=== PATIENT | female | born 2000 | race Two or more races ===

== ENCOUNTER 2024-07-24 16:20 | Emergency (ER) | payer MEDICAID, SELFPAY ==
[2024-07-24 16:22] VITALS: BMI 20.7
[2024-07-24 16:27] VITALS: BP 114/72; PULSE 98; RESP 16; TEMP 37.2; O2SAT 100
--- NOTE | 2024-07-24 16:39 | XR_ITS ---
Examination: Thoracic spine 2 views TECHNIQUE: AP lateral thoracic spine 2 views Exam date and time: July 24, 2024 at 1654 hours INDICATIONS: Injury to the back yesterday back pain FINDINGS: No acute fracture is Upper thoracic dextroscoliosis 14 degrees, thoracolumbar levoscoliosis 12 degrees Old left-sided rib fractures IMPRESSION: No acute thoracic fracture
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
== END 2024-07-24 22:08 | disposition left against medical advice (07) ==
PROVIDERS: Emergency Provider Emergency Medicine
DX: R51.9 Headache, unspecified (principal); M54.2 Cervicalgia; M54.9 Dorsalgia, unspecified; T14.8XXA Other injury of unspecified body region, initial encounter; Y04.0XXA Assault by unarmed brawl or fight, initial encounter; Z53.29 Procedure and treatment not carried out because of patient's decision for other reasons
CPT/HCPCS: 72070; 99281

== ENCOUNTER 2024-07-25 13:27 | Emergency (ER) | payer MEDICAID, SELFPAY ==
[2024-07-25 13:29] VITALS: BMI 20.7
[2024-07-25 14:31] VITALS: BP 105/67; PULSE 95; RESP 12; O2SAT 100
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
--- NOTE | 2024-07-25 14:46 | XR_ITS ---
Examination: Lumbar spine 3 views Technique one AP lateral coned lateral lower lumbar spine 3 views Exam date and time: July 25, 2024 1546 hrs. Indications: Injury to lower back yesterday, lower back pain. Findings: Lumbar levoscoliosis 10 degrees No acute lumbar fracture No spondylolisthesis Minimal disc narrowing L5-S1 Impression: No lumbar fracture
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
[2024-07-25 15:42] LABS: HCG Qualitative,Urine Negative
[2024-07-25 21:15] VITALS: BP 106/67; PULSE 82; RESP 18; TEMP 36.9; O2SAT 99
--- NOTE | 2024-07-25 21:21 | PC.NURSE ---
C-Collar applied at this time.
[2024-07-26 00:41] VITALS: BP 102/61; PULSE 78; RESP 17; TEMP 37.1; O2SAT 98
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
--- NOTE | 2024-07-26 01:00 | PC.NURSE ---
I SPOKE WITH MARC FROM [facility] AND PER DR. BENNY COLEMAN HE RECOMMENDS THIS PT GO TO A HIGHER LEVEL CARE FACILITY BECAUSE THEY ARE LIMITED IN THEIR SPINAL SERVICES.
--- NOTE | 2024-07-26 01:37 | PC.NURSE ---
DR. BAL IS ON THE PHONE WITH THE [facility] @ THIS TIME.
[2024-07-26 01:42] VITALS: BP 105/54; PULSE 81; RESP 16; TEMP 36.9; O2SAT 98
[2024-07-26 02:25] LABS: Basophils # (Auto) 0.1 Thou/mm3 (0.0-0.2); Basophils % (Auto) 1 % (0-2.5); Eosinophils # (Auto) 0.2 Thou/mm3 (0.0-0.5); Eosinophils % (Auto) 2 % (0-10); Hematocrit 32.8 % (36.0-46.0); Hemoglobin 10.8 g/dL (12.0-16.0); Immature Granulocytes % (Auto) 0 % (0-0); Immature Granulocytes Auto 0.02 Thou/mm3 (0.00-0.00); Lymphocytes # (Auto) 3.6 Thou/mm3 (1.0-4.8); Lymphocytes % (Auto) 41 % (10-50); Mean Corpuscular HGB Conc 32.9 g/dl (31.0-37.0); Mean Corpuscular Volume 82 fL (80-100); Monocytes # (Auto) 0.5 Thou/mm3 (0.0-0.8); Monocytes % (Auto) 6 % (0-12); Neutrophils # (Auto) 4.4 Thou/mm3 (1.8-7.7); Neutrophils % (Auto) 50 % (37-80); Nucleated Red Blood Cell % 0 /100 WBC (0); Platelet Count 321 Thou/mm3 (140-440); White Blood Count 8.7 Thou/mm3 (3.6-11.0)
[2024-07-26] MEDS: KETOROLAC INJ 30 MG/ML VIAL IVP (02:33)
[2024-07-26] MEDS: SODIUM CHLORIDE 0.9% 1000 ML 1,000 ML 999 ML IV (02:33)
[2024-07-26] MEDS: DIPHTH,PERTUSS(ACELL),TET VAC 0.5 ML SYR- ADULT IMi (02:33)
--- NOTE | 2024-07-26 02:38 | PC.NURSE ---
Pt sitting up in bed with C-collar drinking juice and using her cell phone
[2024-07-26 03:03] LABS: Partial Thromboplastin Time 29.3 Seconds (22.0-36.0); Prothrombin Time 10.8 Seconds (9.0-12.2)
--- NOTE | 2024-07-26 03:05 | PC.NURSE ---
THIS PT IS ACCEPTED TO [facility] IN [place] BY DR. HUGHES FROM [facility]. [facility] SIS A ER:ER TRANSFER AND NUMBER FOR REPORT IS [phone]. MILA WAS THE REP I SPOKE WITH FOR ACCEPTING INFORMATION.
[2024-07-26 03:06] LABS: Albumin, Serum 3.7 gm/dL (3.5-5.0); Alcohol, Blood Medical < 3.0 mg/dL (0-10.0); Alkaline Phosphatase 69 U/L (46-116); Anion Gap 7 (7-16); Aspartate Amino Transferase 13 U/L (0-34); BUN/Creatinine Ratio 20 Ratio (12-20); Blood Urea Nitrogen 14 mg/dL (9-23); Calcium 8.7 mg/dL (8.3-10.6); Calcium (Corrected) 8.9 mg/dL (8.5-10.1); Carbon Dioxide 28.3 mMol/L (20.0-31.0); Chloride 105 mMol/L (98-107); Creatinine (Component) 0.7 mg/dL (0.6-1.3); Estimated Creatinine Clearance 95.9 mL/min (>60); Glucose 103 mg/dL (74-106); Magnesium 2.2 mg/dL (1.6-2.6); Osmolality,Calculated 279 (275-295); Potassium 3.8 mMol/L (3.4-5.1); Sodium 140 mMol/L (136-145); eGFR > 60 See Note
[2024-07-26 03:17] LABS: Alanine Aminotransferase 8 U/L (10-49); Albumin/Globulin Ratio 1.5 (1.2-2.2); Bilirubin,Total 0.8 mg/dL (0.3-1.2); Globulin 2.4 gm/dL (2.3-3.5); Total Protein 6.1 gm/dL (5.7-8.2)
[2024-07-26] MEDS: MethylPREDNISolone SOD SUCC 62.5 MG/ML 2ML VIAL 125 MG IVP (03:31)
--- NOTE | 2024-07-26 03:33 | PC.NURSE ---
[place] case #[id number]
[2024-07-26] MEDS: ALBUTEROL/IPRATROPIUM (Duoneb) RT SOL 3 ML NEBU INH (03:39)
[2024-07-26 03:44] VITALS: PULSE 75; RESP 16; O2SAT 98
--- NOTE | 2024-07-26 03:54 | PC.NURSE ---
Report to [facility]
[2024-07-26 04:17] VITALS: BP 98/42; PULSE 87; RESP 18; O2SAT 98
== END 2024-07-26 04:20 | disposition short-term general hospital (02) ==
PROVIDERS: Physician Assistant; Emergency Provider Emergency Medicine; PCP Family Medicine
DX: S12.501A Unspecified nondisplaced fracture of sixth cervical vertebra, initial encounter for closed fracture (principal); S06.0X9A Concussion with loss of consciousness of unspecified duration, initial encounter; S05.12XA Contusion of eyeball and orbital tissues, left eye, initial encounter; S05.11XA Contusion of eyeball and orbital tissues, right eye, initial encounter; S80.212A Abrasion, left knee, initial encounter; S80.211A Abrasion, right knee, initial encounter; S30.810A Abrasion of lower back and pelvis, initial encounter; S40.212A Abrasion of left shoulder, initial encounter; S40.211A Abrasion of right shoulder, initial encounter; S40.812A Abrasion of left upper arm, initial encounter; S40.811A Abrasion of right upper arm, initial encounter; S70.312A Abrasion, left thigh, initial encounter; S70.311A Abrasion, right thigh, initial encounter; S80.812A Abrasion, left lower leg, initial encounter; S80.811A Abrasion, right lower leg, initial encounter; S60.511A Abrasion of right hand, initial encounter; S30.0XXA Contusion of lower back and pelvis, initial encounter; S40.012A Contusion of left shoulder, initial encounter; S40.011A Contusion of right shoulder, initial encounter; S70.12XA Contusion of left thigh, initial encounter; S70.11XA Contusion of right thigh, initial encounter; S80.12XA Contusion of left lower leg, initial encounter; S80.11XA Contusion of right lower leg, initial encounter; S40.022A Contusion of left upper arm, initial encounter; S40.021A Contusion of right upper arm, initial encounter; Y04.0XXA Assault by unarmed brawl or fight, initial encounter; Z75.1 Person awaiting admission to adequate facility elsewhere; Z23 Encounter for immunization
CPT/HCPCS: 36415; 70450; 72100; 72125; 73130; 80053; 80320; 81025; 83735; 85025; 85610; 85730; 90471; 90715; 94640; 96361; 96374; 99285; A9270; J1885; J2919; J7030; G0480

== ENCOUNTER 2024-08-08 19:03 | Emergency (ER) | payer MEDICAID, SELFPAY ==
[2024-08-08 19:03] VITALS: BMI 25.4
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
[2024-08-08] MEDS: ACETAMINOPHEN 325 MG TABLET 650 MG PO (19:33)
[2024-08-08 19:34] VITALS: BP 117/78; PULSE 100; RESP 16; TEMP 37.1; O2SAT 100
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
== END 2024-08-09 01:29 | disposition home or self-care (01) ==
PROVIDERS: Emergency Provider Emergency Medicine; PCP Family Medicine
DX: S12.500A Unspecified displaced fracture of sixth cervical vertebra, initial encounter for closed fracture (principal); S09.90XA Unspecified injury of head, initial encounter; S29.9XXA Unspecified injury of thorax, initial encounter; W10.9XXA Fall (on) (from) unspecified stairs and steps, initial encounter
CPT/HCPCS: 70450; 72125; 72128; 99284; A9270

== ENCOUNTER 2024-09-18 04:53 | Emergency (ER) | payer MEDICAID, SELFPAY ==
[2024-09-18 04:57] VITALS: PULSE 103; RESP 18; O2SAT 99
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
[2024-09-18 05:03] VITALS: BP 138/97; PULSE 100; RESP 19; TEMP 36.4; O2SAT 99; BMI 19.3
[2024-09-18 05:05] VITALS: BP 138/97; PULSE 91; RESP 14; TEMP 36.4; O2SAT 99
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
--- NOTE | 2024-09-18 05:10 | EKG_ITS ---
[facility] Test Date: 2024-09-18 Pat Name: KELLY GARCIA Department: Room: - Gender: Female Transverse Abdominal Muscle Nurse: : 2000 Requested By: Pratik Sharpe Order Number: [id number] Reading MD: Pratik Sharpe Measurements Intervals [place] Rate: 148 P: 89 NM: 131 QRS: 51 QRSD: 93 T: 11 QT: 286 QTc: 450 Interpretive Statements SINUS TACHYCARDIA, POSSIBLE ATRIAL FLUTTER MODERATE ST DEPRESSION [0.05+ mV ST DEPRESSION] No previous ECG available for comparison /store/S0/[id number]/ecg/[id number].pdf
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
[2024-09-18 05:19] LABS: Base Excess, Venous -3 (-3-3); O2 Saturation, Venous 81 % (96-97); PCO2, Venous 42 mmHg (36-56); PO2, Venous 49 mmHg (15-58); pH, Venous 7.34 (7.33-7.66)
[2024-09-18 05:25] LABS: Basophils % (Auto) 0 % (0-2.5); Eosinophils % (Auto) 0 % (0-10); Hemoglobin 12.3 g/dL (12.0-16.0); Immature Granulocytes % (Auto) 0 % (0-0); Immature Granulocytes Auto 0.02 Thou/mm3 (0.00-0.00); Lymphocytes # (Auto) 2.5 Thou/mm3 (1.0-4.8); Lymphocytes % (Auto) 31 % (10-50); Mean Corpuscular HGB Conc 34.2 g/dl (31.0-37.0); Mean Corpuscular Hemoglobin 27.2 pg (25.0-35.0); Mean Corpuscular Volume 80 fL (80-100); Monocytes # (Auto) 0.3 Thou/mm3 (0.0-0.8); Monocytes % (Auto) 4 % (0-12); Neutrophils # (Auto) 5.3 Thou/mm3 (1.8-7.7); Neutrophils % (Auto) 65 % (37-80); Nucleated Red Blood Cell % 0 /100 WBC (0); Platelet Count 308 Thou/mm3 (140-440); RDW Standard Deviation 39.8 fL (36.4-46.3); Red Blood Count 4.53 Miln/mm3 (4.00-5.20); White Blood Count 8.2 Thou/mm3 (3.6-11.0)
[2024-09-18] MEDS: LORazepam 2 MG/ML VIAL 1 MG IVP (05:25)
[2024-09-18] MEDS: SODIUM CHLORIDE 0.9% 1000 ML 1,000 ML 999 ML IV (05:31)
[2024-09-18] MEDS: ONDANSETRON INJ 2 MG/ML INJ 2 ML 4 MG IVP (05:31)
[2024-09-18 05:35] LABS: Partial Thromboplastin Time 26.8 Seconds (22.0-36.0); Prothrombin Time 11.3 Seconds (9.0-12.2)
[2024-09-18 05:55] LABS: Ammonia 14 uMol/L (11-32)
[2024-09-18 06:07] LABS: HCG,Qualitative Serum Negative
[2024-09-18 06:14] LABS: B-Type Natriuretic Peptide < 20 pg/mL (0-100)
[2024-09-18 06:17] LABS: Acetaminophen < 2.0 mcg/mL (10.0-20.0); Alanine Aminotransferase 11 U/L (10-49); Albumin, Serum 4.5 gm/dL (3.5-5.0); Albumin/Globulin Ratio 1.8 (1.2-2.2); Alcohol, Blood Medical 272.2 mg/dL (0-10.0); Alkaline Phosphatase 59 U/L (46-116); Anion Gap 12 (7-16); Aspartate Amino Transferase 20 U/L (0-34); BUN/Creatinine Ratio 7 Ratio (12-20); Bilirubin,Direct 0.2 mg/dL (0.0-0.3); Bilirubin,Total 0.7 mg/dL (0.3-1.2); Blood Urea Nitrogen < 5 mg/dL (9-23); Calcium 8.6 mg/dL (8.3-10.6); Calcium (Corrected) 8.6 mg/dL (8.5-10.1); Carbon Dioxide 22.8 mMol/L (20.0-31.0); Chloride 112 mMol/L (98-107); Creatine Kinase 142 U/L (34-171); Creatinine (Component) 0.7 mg/dL (0.6-1.3); Estimated Creatinine Clearance 108.8 mL/min (>60); Globulin 2.5 gm/dL (2.3-3.5); Glucose 130 mg/dL (74-106); Osmolality,Calculated 291 (275-295); Potassium 3.6 mMol/L (3.4-5.1); Sodium 147 mMol/L (136-145); Troponin I < 0.002 ng/mL (0.0-0.045); eGFR > 60 See Note
[2024-09-18 06:34] VITALS: PULSE 120; RESP 20; O2SAT 100
--- NOTE | 2024-09-18 06:35 | PC.NURSE ---
Pt self removed IV, is not following directions. Pt crying, yelling at staff saying let me go I know my rights . Tried to calm pt by explaining she was in the hospital. made aware. Pt taken to CT by CLAUDETTE stanton and RN.
[2024-09-18] MEDS: LORazepam 2 MG/ML VIAL IM (06:54)
--- NOTE | 2024-09-18 06:56 | PC.NURSE ---
Pt was taken to CT but would not sit still. Verbal order for 2mg IM ativan received by MD Pickens. Pt was returned to ER room 6, ativan given. Will reattempt to take pt to CT once pt is calm. Pt's mom, emergency contact, was called by registration for consent. Spoke with mother and informed her pt is intoxicated and here in the ER. Mother stated she can be contacted when pt is dc'd and can possibly pick her up.
[2024-09-18 08:41] VITALS: PULSE 18; PULSE 89; RESP 17; O2SAT 99
--- NOTE | 2024-09-18 09:32 | PC.NURSE ---
PT RESTING EVEN RISE AND FALL OF CHEST, READY FOR CT, SPOKE W/CT TO INFORM THEM SHE IS READY. SPOKE W/MOM, SHE REQUEST THAT PT CALL HER WHEN SHE WAKES UP. WILL CONT W/POC. CALL [facility] REMAINS IN REACH
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
[2024-09-18 10:18] VITALS: BP 93/56; PULSE 88; PULSE 89; RESP 18; TEMP 36.6; O2SAT 98
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
[2024-09-18 13:24] LABS: Collection Type, Urine Clean Catch
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
[2024-09-18 13:37] LABS: Bilirubin,Urine Negative (Negative); Blood,Urine Negative (Negative); Clarity,Urine Clear (Clear/Hazy); Color,Urine Lt-Yellow (Lt Yel-Yel); Culture Indicated,Urine Not Indicated; Glucose, Urine Negative (Negative); Ketones,Urine Negative (Negative); Leukocyte Esterase,Urine Negative (Negative); Nitrite,Urine Negative (Negative); Protein,Urine Negative (Neg - Trace); RBC,Urine 2 /hpf (0-3); Specific Gravity,Urine 1.011 (1.001-1.035); Squamous Epithelial Cell,Urine 6 /hpf (0-5); Urobilinogen,Urine Negative mg/dL (0.0-1.0); WBC,Urine 1 /hpf (0-5)
[2024-09-18 13:43] LABS: HCG Qualitative,Urine Negative
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
[2024-09-18 14:10] LABS: Amphetamine/Methamp Scrn,U Negative (Negative); Barbiturate Screen,Urine Negative (Negative); Benzodiazepines Screen,Urine Negative (Negative); Benzoylecgonine Screen, Ur Negative (Negative); Fentanyl Screen,Urine Negative (Negative); Opiate Screen,Urine Negative (Negative); THC Screen,Urine Positive (Negative)
== END 2024-09-18 14:02 | disposition left against medical advice (07) ==
PROVIDERS: Emergency Medicine; Emergency Provider Emergency Medicine; PCP Family Medicine
DX: S19.9XXA Unspecified injury of neck, initial encounter (principal); S09.93XA Unspecified injury of face, initial encounter; S29.9XXA Unspecified injury of thorax, initial encounter; S39.91XA Unspecified injury of abdomen, initial encounter; S09.90XA Unspecified injury of head, initial encounter; S39.92XA Unspecified injury of lower back, initial encounter; Y09 Assault by unspecified means; Z53.29 Procedure and treatment not carried out because of patient's decision for other reasons
CPT/HCPCS: 36415; 70450; 70486; 71250; 72125; 72128; 72131; 74176; 80053; 80307; 80320; 80329; 81001; 81025; 82140; 82248; 82550; 82803; 83735; 83880; 84484; 84703; 85025; 85610; 85730; 93005; 96361; 96372; 96374; 96375; 99284; J2060; J2405; J7030; G0480